=== PATIENT | female | born 1995 | race Hispanic/Latino ===

== ENCOUNTER 2021-11-10 07:13 | Emergency (ER) | payer OTHER ==
[~2021-11-10] VITALS: Ht 144.8 cm; Wt 49.9 kg
[2021-11-10] MEDS ORDERED: PANTOPRAZOLE 40 MG/VIAL IVP ONE (07:30)
[2021-11-10 08:15] LABS: BASOPHILS % (AUTO) 0.3 % (0.0-5.0); EOSINOPHILS % (AUTO) 2.3 % (0.0-8.0); HEMATOCRIT 36.9 % (36-48); LYMPHOCYTES % (AUTO) 39.2 % (21.0-51.0); MEAN CORPUSCULAR HEMOGLOBIN 28.9 pg (27.0-33.0); MEAN CORPUSCULAR HGB CONC 33.6 g/dL (32.0-36.0); MONOCYTES % (AUTO) 6.9 % (3.0-13.0); NEUTROPHILS % (AUTO) 51.1 % (40.0-77.0); PLATELET COUNT (AUTO) 207 K/uL (130-400); RED BLOOD CELL COUNT(AUTO) 4.29 MIL/uL (4.00-5.50); RED CELL DISTRIBUTION WIDTH 12.4 % (11.0-15.5); WHITE BLOOD COUNT (AUTO) 8.7 K/uL (4.8-10.8)
[2021-11-10 08:35] LABS: BILIRUBIN,TOTAL 0.2 mg/dL (0.2-1.0); CREATININE 0.7 mg/dL (0.5-1.5); POTASSIUM 3.4 mmol/L (3.5-5.1); TOTAL PROTEIN, SERUM 7.6 g/dL (6.0-8.3)
[2021-11-10 09:42] LABS: HCG,QUAL RESULT NEGATIVE (NEGATIVE)
[2021-11-10 09:44] LABS: AMPHET/METH SCREEN,URINE NEGATIVE (NEGATIVE); BARBITURATE SCREEN, URINE NEGATIVE (NEGATIVE); BENZODIAZEPINES SCREEN,URINE NEGATIVE (NEGATIVE); CANNABINOID SCREEN,URINE NEGATIVE (NEGATIVE); COCAINE SCREEN,URINE NEGATIVE (NEGATIVE); OPIATE SCREEN,URINE NEGATIVE (NEGATIVE); PHENCYCLIDINE SCREEN,URINE NEGATIVE (NEGATIVE)
[2021-11-10] MEDS ORDERED: NAPR-1098 PO (12:08)
[2021-11-10 12:16] VITALS: BP 97/56
[2021-11-10] MEDS ORDERED: KETOROLAC 30MG VIAL (30MG/ML) IVP ONE (12:30)
== END 2021-11-10 12:50 | disposition home or self-care (01) ==
LOC: EDH 07:13
DX: R10.11 Right upper quadrant pain (principal); R10.13 Epigastric pain; R10.31 Right lower quadrant pain
CPT/HCPCS: 36415; 76705; 80053; 80305; 81025; 83690; 85025; 93005; 96374; 99285; C9113; J1885